=== PATIENT | male | born 1965 | race Caucasian/White ===

== ENCOUNTER 2017-09-16 18:23 | Inpatient (IN) ==
[2017-09-16] MEDS ORDERED: cefTRIAXone 1,000 MG in SODIUM CHLORIDE 0.9% 100 ML IV STA (19:39)
[2017-09-16] MEDS ORDERED: ONDANSETRON 4 MG/2 ML VIAL IV STA (19:39)
[2017-09-16] MEDS ORDERED: HYDROmorphone 2 MG/1 ML VIAL IV STA (19:39)
[2017-09-16] MEDS ORDERED: ONDANSETRON 4 MG/2 ML VIAL ONE (19:47)
[2017-09-16] MEDS ORDERED: HYDROmorphone 2 MG/1 ML VIAL ONE (19:47)
[2017-09-16] MEDS ORDERED: cefTRIAXone 1,000 MG VIAL ONE (19:47)
[2017-09-16 20:02] LABS: INR 0.9; Partial Thromboplastin Time 26.4 SECS (0-40)
[2017-09-16 20:03] LABS: Basophils # 0.1 10*3/uL (0.0-0.2); Basophils % 0.7 % (0.0-0.8); Eosinophils # 0.4 10*3/uL (0.0-0.87); Eosinophils % 4.8 % (0.00-10.9); Hematocrit 41.9 VOL% (42.0-52.0); Hemoglobin 14.1 GM/DL (14.0-18.0); Immature Granulocytes % 0.2 %; Immature Granulocytes Absolute 0.02 #; Lymphocytes # 3.4 10*3/uL (1.4-4.0); Lymphocytes % 38.9 % (21.2-54.2); Mean Corpuscular HGB Conc 33.7 GM/DL (32-36); Mean Corpuscular Hemoglobin 31 PG (27-34); Mean Corpuscular Volume 91.9 FL (87-102); Mean Platelet Volume 9.1 FL (9.6-12.0); Monocytes # 0.6 10*3/uL (0.11-0.8); Monocytes % 7.1 % (1.7-12.7); Neutrophils # 4.2 10*3/uL (1.4-7.4); Neutrophils % 48.3 % (38.7-73.9); Platelet Count 273 T/CUMM (130-400); Red Blood Count 4.56 MC/CUMM (3.8-5.5); Red Cell Distribution Width 12.5 % (9.3-17.3); White Blood Count 8.8 T/CUMM (4-12)
[2017-09-16 20:21] LABS: Albumin 3.8 G/DL (3.4-5.0); Bilirubin,Total 0.6 MG/DL (0.2-1.0); Calcium 8.7 MG/DL (8.5-10.1); Osmolality,Calculated 278.3 MOS/KG (273-304); Potassium 3.9 MMOL/L (3.5-5.1); Total Protein 7.8 G/DL (6.4-8.3)
[2017-09-16] MEDS ORDERED: SODIUM CHLORIDE 0.9% 1,000 ML IV SCH (21:30)
[2017-09-16] MEDS: MORPHINE 10 MG/1 ML VIAL IV PRN (22:13)
[2017-09-16] MEDS: VANCOMYCIN INJ 1,500 MG in SODIUM CHLORIDE 0.9% 500 ML IV SCH (22:59)
[2017-09-17] MEDS: MORPHINE 10 MG/1 ML VIAL IV PRN ×2 (02:01→12:03)
[2017-09-17] MEDS: VANCOMYCIN INJ 1,500 MG in SODIUM CHLORIDE 0.9% 500 ML IV SCH (10:03)
[2017-09-17] MEDS ORDERED: PROPOFOL 200 MG/20 ML VIAL IV ONE (11:05)
[2017-09-17] MEDS ORDERED: MIDAZOLAM 2 MG/2 ML VIAL ONE (11:05)
[2017-09-17] MEDS ORDERED: SEVOFLURANE 1 UNIT/15 MINUTE INH ONE (11:05)
[2017-09-17] MEDS ORDERED: DEXAMETHASONE 4 MG/1 ML VIAL ONE (11:05)
[2017-09-17] MEDS ORDERED: fentaNYL 100 MCG/2 ML VIAL ONE (11:05)
[2017-09-17] MEDS ORDERED: ONDANSETRON 4 MG/2 ML VIAL ONE (11:06)
[2017-09-17] MEDS ORDERED: GLYCOPYRROLATE 0.4 MG/2 ML VIAL ONE (11:06)
[2017-09-17] MEDS ORDERED: MEPERIDINE 25 MG/1 ML VIAL ONE (11:06)
[2017-09-17] MEDS ORDERED: HYDROmorphone 2 MG/1 ML VIAL IV PRN (11:08)
[2017-09-17] MEDS ORDERED: ONDANSETRON 4 MG/2 ML VIAL IV PRN (11:08)
[2017-09-29 08:10] VITALS: BP 144/80
== END 2017-09-17 16:45 | disposition home or self-care (01) | DRG 983 ==
LOC: N.ED 18:23 → N.EDINP 21:18 → N.3E 21:41
PROVIDERS: ADMIT Internal Medicine; ATTEND Internal Medicine